=== PATIENT | male | born 1960 | race Caucasian/White ===

== ENCOUNTER 2018-07-23 06:48 | Day surgery (SDC) | payer OTHER ==
[2018-07-21 11:06] VITALS: BMI 24.9
[~2018-07-23 06:48] MED LIST: DEXAMETHASONE SOD PHOSPHATE 10 MG/ML 1 ML VIAL IV ONE; HYDROmorphone 0.5 MG/0.5 ML SYRINGE IVP PRN; LACTATED RINGERS 1,000 ML IV SCH; MIDAZOLAM 2 MG/2 ML VIAL IV PRN; ONDANSETRON 4 MG/2 ML VIAL IVP ONE; ceFAZolin IN SWFI 2 GM/20 ML SYRINGE IVP ONE
[2018-07-23] MEDS ORDERED: LIDOCAINE 1% 20 ML VIAL (10MG/ML) FOR IV START INTRADERMA ONE (07:29)
[2018-07-23] MEDS ORDERED: fentaNYL (PF) 50 MCG/ML 2 ML AMP IV ONE (08:07)
[2018-07-23] MEDS ORDERED: fentaNYL (PF) 50 MCG/ML 2 ML AMP ONE (08:28)
[2018-07-23] MEDS ORDERED: GLYCOPYRROLATE 0.2 MG/ML 2 ML VIAL ONE (08:28)
[2018-07-23] MEDS ORDERED: MIDAZOLAM 2 MG/2 ML VIAL ONE (08:28)
[2018-07-23] MEDS ORDERED: LIDOCAINE 1% INJ 10MG/ML (20 ML MDV) ONE (08:28)
[2018-07-23] MEDS ORDERED: ROCURONIUM BROMIDE 10 MG/ML 10 ML VIAL IV ONE (08:28)
[2018-07-23] MEDS ORDERED: PROPOFOL 10 MG/ML 20 ML VIAL IV ONE (08:28)
[2018-07-23] MEDS ORDERED: ROPIVACAINE 5 MG/ML 30 ML VIAL ONE (08:28)
[2018-07-23] MEDS ORDERED: NEOSTIGMINE 1 MG/ML 10 ML VIAL ONE (08:28)
--- NOTE | 2018-07-23 10:23 | P.ONQ ---
Anesthesiology Proc Note - PNB - Peripheral Nerve Block Performed Right Popliteal Single Time Out Performed: Yes Procedure Start Time: 08:05 Procedure Stop Time: 08:12 Indication: Dx/Pain Location (RIGHT FOOT), Requested by physician (DR KIRK) Sedation Type: Sedate with meaningful contact maintained (VERSED 2MG, FENTANYL 100MCG) Preparation: Sterile Prep Position: Sitting (LEFT LATERAL DECUBITUS) Catheter: None Needle Types: Other (see comment) (MEGAN) Needle Size: 100mm (4") Needle Gauge: 21 Technique: Ultrasound Injectate: 0.5% Ropivacaine (see comment for volume) (30 ML)
[2018-07-23] MEDS ORDERED: LACTATED RINGERS 1,000 ML IV ONE ×2 (10:27→10:36)
[2018-07-23] MEDS ORDERED: ONDANSETRON 4 MG/2 ML VIAL IVP PRN (10:28)
[2018-07-23] MEDS ORDERED: HYDROmorphone 1 MG/ML 1 ML SYRINGE IVP PRN ×2 (10:28)
[2018-07-23] MEDS ORDERED: LACTATED RINGERS 1,000 ML IV SCH (10:30)
--- NOTE | 2018-07-23 10:46 | P.OP ---
Date of Procedure: 07/23/18 Preoperative Diagnosis: 1. Right navicular cuneiform arthritis 2. Right gastroc equinus contracture Postoperative Diagnosis: Same Procedure(s) Performed: 1. Right navicular cuneiform joint arthrodesis 2. Right gastrocnemius recession 3. Right calcaneal bone graft harvest Anesthesia: NADER, regional Surgeon: Giuseppe Choudhury Bilingual Teacher Aide #1: Larry Brown Estimated Blood Loss (ml): 10 IV fluids (ml): 700 Pathology: none sent Condition: stable Disposition: PACU Indications for Procedure: The patient is a very pleasant 58-year-old male that has had a long-standing history of problems with his right foot. He presented to me last year which point he was diagnosed with symptomatic navicular cuneiform joint arthritis. He was initially managed nonsurgically with orthotics, activity modification, anti-inflammatory pain medications, Stretching, and rocker-bottom shoes. He underwent a diagnostic navicular cuneiform joint injection and had 80% relief. His pain returned and he discussed Proceeding with surgery. My recommendation was to fuse the symptomatic navicular cuneiform joint and to perform a gastrocnemius recession to offload the midfoot. We discussed the potential risks and complications of surgery including but not limited to risk of anesthesia, superficial infection, deep infection, delayed wound healing, damage to local blood vessels or nerves, nonunion of the fusion site, malunion of the fusion site, some traumatic hardware, adjacent joint arthritis, continued pain, worsening pain, chronic swelling, symptomatically hardware, need for further surgery, generalized dissatisfaction with surgery, medical complications including DVT and PE possibly loss of life or limb. The patient voiced his understanding of these potential Locations and provided his verbal and written consent to go forward with surgery. Description of Procedure: The patient was identified in preoperative holding and the correct right leg was marked with my initials. I reviewed the consent form with the patient all his questions were answered. The patient was then given a popliteal and saphenous nerve block by anesthesia. He was brought back to the operating room and positioned on the OR table. General anesthetic was administered. A tourniquet was applied the proximal aspect of the right leg. A bump was placed under the right buttock internally rotating the leg to neutral. All bony prominences are well-padded. The right leg was then prepped and draped in standard sterile fashion. Prior to starting surgery timeout was performed identifying the correct patient, operative extremity, and procedure. The patient's leg was then elevated, exsanguinated with an Esmarch bandage, the tourniquet was inflated to 250 mmHg. I began by performing a gastrocnemius recession. A 3 cm incision was marked out 1 thumb breadth posterior to the tibia at the distal medial muscle belly of the gastrocnemius. Skin incision with a scalpel dissection was carried down carefully through subcutaneous tissue with tenotomy scissors. The superficial fascia was incised longitudinally in line with the skin incision. I bluntly developed the interval between the gastrocnemius aponeurosis and superficial fascia. The sural nerve was seen to be adherent to the superficial fascia. I then bluntly developed the interval between the gastrocnemius aponeurosis and soleus fascia. Modified right angle retractors were placed and the gastrocnemius aponeurosis was cut from medial to lateral in its entirety. Upon releasing the gastrocnemius aponeurosis there is a significant increase in dorsiflexion of the ankle with the knee extended. The wound was then copiously irrigated and closed in layers with a running subcuticular Monocryl stitch and Steri-Strips for the skin. Attention was then turned to the dorsal midfoot. A longitudinal incision was made centered between the first and second metatarsals directly over the navicular cuneiform joint. Skin incision was made a scalpel and dissection was carried down carefully and saphenous tissue with tenotomy scissors. A large superficial nerve was identified and carefully retracted. The periosteum over the naviculocuneiform joint was sharply elevated. On inspection there is end- stage arthritis with multiple large dorsal osteophytes over the naviculocuneiform joint. The osteophytes were contoured with a Kennedy. K wires were placed in the navicular and medial cuneiform and a distractor was applied. The remaining articular cartilage was removed from the exposed joint surfaces with a series of osteotomes and curettes. The exposed subchondral bone was then perforated with a 2.5 mm drill bit to help facilitate fusion. The joint was copiously irrigated. I contoured the joint so that it could be adequately compressed. Attention was then turned to the lateral aspect of the calcaneus. A stab incision was made over the lateral skin over the posterior tuberosity calcaneus. A 4.5 mm drill guide was used to take a core of bone out of the calcaneal body. This core bone graft was then morcellized and packed into the prepared joint surface for fusion. The naviculocuneiform joint was then positioned for fusion and a 0.0625 K wire was placed across the joint to hold it. A stab incision was then made over the navicular tuberosity and a 3.5 mm lag screw was placed from the navicular tuberosity into the medial cuneiform. A 3.5 mm drill bit was used to create a lighting hole in the navicular tuberosity and a 2.5 mm drill bit was used to create a threaded hole in the medial cuneiform. A fully threaded, solid 3.5 mm lag screw was placed generating compression across the joint. I then placed a second lag screw from the dorsal navicular body into the middle cuneiform. The same combination of 3.5 mm and 2.5 mm drill bits were used and a fully threaded 3.5 mill meter lag screw was placed generating additional compression across the more lateral aspect of the naviculocuneiform joint. I then placed a non-lag screw from the medial cuneiform into the lateral navicular. A 2.5 mm drill bit was used to create a path then a fully threaded 3.5 mm screw was placed for additional fixation. Clinically the joint appeared to be compressed. Additional bone graft obtained from the calcaneus and from the osteophytes were morcellized and packed around the fusion. Final fluoroscopic images were taken. The wound was copiously irrigated. The periosteum was closed with a running 0 Vicryl stitch. The deep subcu was reapproximated using 3-0 Monocryl. The skin was closed with 3-0 nylon horizontal mattress stitches. The tourniquet was let down. A sterile dressing consisting of Betadine soaked Adaptic, 4 x 4, and web roll was applied. I verified that all instrument, sponge, and sharp counts were correct. The drapes were taken down and a well-padded bulky Jasso splint was applied with the ankle in neutral. The patient was then awoken from his anesthetic, transferred to a gurney, and brought to PACU having tolerated the procedure well. Larry Brown PA-C Was required as a skilled events and promotions assistant for patient positioning , surgical exposure, retraction, placement of hardware, closure of wounds, and application of splint. Plan: The patient is going to discharge home as an outpatient. He was instructed to remain strictly nonweightbearing in his splint at all times. He' ll be given Percocet for pain control. He will also be given aspirin for DVT prophylaxis. He'll be seen by physical therapy prior to discharge for crutch and gait training.
[2018-07-23 11:27] VITALS: TEMP 97.1
[2018-07-23 11:55] VITALS: RESP 18
--- NOTE | 2018-07-23 12:18 | FL ---
Fluoroscopy HISTORY: Arthrodesis 1 minute 36 seconds fluoroscopy time supplied to the referring clinician. 2 intraoperative C-arm alex ges document the procedure. See dictated report from orthopedic surgery.
--- NOTE | 2018-07-23 12:18 | XR ---
Limited right foot HISTORY: Fusion 2 intraoperative C-arm images document the procedure.
[2018-07-23 13:06] VITALS: BP 133/81; PULSE 86
== END 2018-07-23 13:44 | disposition home or self-care (01) ==
LOC: OR 06:48
PROVIDERS: ATTEND Orthopaedic Surgery
DX: M19.071 Primary osteoarthritis, right ankle and foot (principal); M62.461 Contracture of muscle, right lower leg; M25.774 Osteophyte, right foot; H91.90 Unspecified hearing loss, unspecified ear; G47.33 Obstructive sleep apnea (adult) (pediatric); Z99.89 Dependence on other enabling machines and devices; Z79.1 Long term (current) use of non-steroidal anti-inflammatories (NSAID); Z79.899 Other long term (current) drug therapy; Z88.2 Allergy status to sulfonamides
CPT/HCPCS: 97161; 73620; 27687; 20900; 28740; 64450; C1713; J2250; J1100; J2405; J3010; J0690